=== PATIENT | female | born 1995 | race American Indian/Alaskan Native ===

== ENCOUNTER 2017-12-27 20:16 | Emergency (ER) | payer SELFPAY ==
[2017-12-27 20:16] VITALS: BMI 31.1
[2017-12-27 20:25] VITALS: BP 105/65; PULSE 70; RESP 14; TEMP 98.5; O2SAT 99
--- NOTE | 2017-12-27 21:03 | C.PDOC ---
History Of Present Illness 22 yo female c/o vaginal irritation for 2 days. Pt notes that she took a bath with the "bath bomb" and when she got out she felt the irritation "inside". Denies vaginal discharge, vaginal bleeding, rash, itching, abdominal pain, back pain or fever. Denies any swelling, difficulty breathing or swallowing. Notes she has had a h/o yeast infection and "feels the same without the itching." Time Seen by Provider: 12/27/17 20:28 Chief Complaint (Nursing): Abnormal Skin Integrity History Per: Patient History/Exam Limitations: no limitations Onset/Duration Of Symptoms: Days Current Symptoms Are (Timing): Still Present Past Medical History Vital Signs: Last Vital Signs Temp 98.5 F 12/27/17 20:22 Pulse 70 12/27/17 20:22 Resp 14 12/27/17 20:22 BP 105/65 12/27/17 20:22 Pulse Ox 99 12/27/17 21:06 - [facility] [employer] Procedures DELIVERY OF PRODUCTS OF CONCEPTION, EXTERNAL APPROACH (07/27/16) DIVISION OF FEMALE PERINEUM, EXTERNAL APPROACH (07/27/16) Family History: States: Unknown Family Hx - Social History Hx Alcohol Use: No Hx Substance Use: No - Immunization History Hx Tetanus Toxoid Vaccination: Yes Hx Influenza Vaccination: Yes Hx Pneumococcal Vaccination: Yes Review Of Systems Except As Marked, All Systems Reviewed And Found Negative. Physical Exam - Physical Exam Appears: Well, Non-toxic, No Acute Distress Skin: Normal Color, Warm, Dry Head: Atraumatic, Normacephalic Eye(s): bilateral: Normal Inspection, EOMI Nose: Normal Neck: Normal, Normal ROM, Supple Chest: Symmetrical Cardiovascular: Rhythm Regular Respiratory: Normal Breath Sounds Gastrointestinal/Abdominal: Normal Exam, Soft, No Tenderness Back: Normal Inspection Pelvic: Normal External Exam, Vaginal Discharge ((+) think white discharge), No Cervical Motion Tenderness Extremity: Normal ROM Neurological/Psych: Oriented x3, Normal Speech ED Course And Treatment O2 Sat by Pulse Oximetry: 99 Progress Note: Pt requests testing for STDs but does not want to be treated at this time. Instructed to follow up with [facility] in 1-2 days or return to ER if symptoms persist or worsen. Disposition - Disposition Disposition: HOME/ ROUTINE Disposition Time: 21:03 Condition: STABLE Additional Instructions: Follow up with your primary medical doctor or clinic in 2-5 days for further evaluation. Take medications as prescribed. Return to the emergency department at any time if symptoms persist or worsen. Prescriptions: Metronidazole [Flagyl] 500 mg PO BID #14 tab Miconazole/Cleanser 17 On Wipe [Monistat 3 Combo Pack] 1 each VG HS #1 kit Instructions: Bacterial Vaginosis (DC) Forms: [facility] (Lithuanian) - Clinical Impression Clinical Impression: Bacterial vaginosis
[2017-12-27 21:27] LABS: SQUAMOUS EPITHIAL 15 /hpf (0-5); URINE BILIRUBIN NEGATIVE (NEGATIVE); URINE BLOOD NEGATIVE (NEGATIVE); URINE CLARITY Hazy (Clear); URINE COLOR Yellow (YELLOW); URINE GLUCOSE (UA) 1+ mg/dL (Normal); URINE LEUKOCYTE ESTERASE 2+ Leu/uL (Negative); URINE PROTEIN NEGATIVE (NEGATIVE); URINE UROBILINOGEN NORMAL mg/dL (0.2-1.0)
[2017-12-27 21:31] LABS: HCG,QUALITATIVE URINE NEGATIVE (NEGATIVE)
== END 2017-12-27 21:45 | disposition home or self-care (01) ==
LOC: C.ER 20:16
DX: N76.0 Acute vaginitis (principal); B96.89 Other specified bacterial agents as the cause of diseases classified elsewhere

== ENCOUNTER 2018-09-06 17:01 | Emergency (ER) | payer MEDICAID ==
[2018-09-06 17:01] VITALS: BMI 31.1
--- NOTE | 2018-09-06 17:41 | C.PDOC ---
History Of Present Illness 23 year old female G_P_ with PMHx of ovarian cysts presents for evaluation of LLQ pain described as sharp and rated 10/10 associated with dark urine. The pt reports she was diagnosed with left ovarian cyst. In the ED the pt has US results showing complex cystic mass on the left ovarian. Pt notes having two prior cysts on each of her ovaries. States menstrual cycle is pending. Denies vaginal bleeding, dysuria, fever, chills, nausea, vomiting, diarrhea, constipation, or any other associated symptoms. Time Seen by Provider: 09/06/18 17:21 Chief Complaint (Nursing): Female Genitourinary History Per: Patient History/Exam Limitations: no limitations Onset/Duration Of Symptoms: Days, Waxing/Waning Pain Scale Rating Of: 10 Location Of Pain/Discomfort: LLQ Radiation Of Pain To:: None Quality Of Discomfort: Sharp Associated Symptoms: denies: Fever, Chills Recent travel outside of the [place]: No Past Medical History Reviewed: Historical Data, Nursing Documentation, Vital Signs Vital Signs: Last Vital Signs Temp 97.7 F 09/06/18 17:07 Pulse 79 09/06/18 17:07 Resp 20 09/06/18 17:07 BP 109/72 09/06/18 17:07 Pulse Ox 98 09/06/18 17:07 - [facility] Procedures DELIVERY OF PRODUCTS OF CONCEPTION, EXTERNAL APPROACH (07/27/16) DIVISION OF FEMALE PERINEUM, EXTERNAL APPROACH (07/27/16) Family History: States: Unknown Family Hx - Social History Hx Alcohol Use: Yes Hx Substance Use: Yes - Immunization History Hx Tetanus Toxoid Vaccination: (unk) Hx Influenza Vaccination: No Hx Pneumococcal Vaccination: (unk) Review Of Systems Except As Marked, All Systems Reviewed And Found Negative. Constitutional: Negative for: Fever, Chills Gastrointestinal: Positive for: Abdominal Pain (LLQ). Negative for: Nausea, Vomiting, Diarrhea, Constipation Genitourinary: Positive for: Other ((+) dark urine. ). Negative for: Dysuria, Vaginal Discharge Physical Exam - Physical Exam Appears: Non-toxic, No Acute Distress Skin: Warm, Dry Head: Atraumatic, Normacephalic Eye(s): bilateral: Normal Inspection ED Course And Treatment O2 Sat by Pulse Oximetry: 98 (RA) Pulse Ox Interpretation: Normal Medical Decision Making Medical Decision Making: Initial plan: -Motrin -Tylenol -HCG Urine -Urinalysis Progress/Update: Pt stable for discharge home. Advised to follow-up with [facility] within 2-3 days. Patient feeling much better after Motrin. Will d/c Disposition - Disposition Disposition: HOME/ ROUTINE Disposition Time: 18:10 Condition: STABLE Additional Instructions: You can take Tylenol 975mg and Ibuprofen 600mg for pain 3 times a day. Follow up with your [facility] doctor. Prescriptions: Ibuprofen [Motrin] 600 mg PO TID #15 tab Instructions: Ovarian Cyst (DC) Forms: [facility] (Chinese), General Discharge Instructions - POA Present On Arrival: None - Clinical Impression Clinical Impression: Ovarian cyst - Scribe Statement The provider has reviewed the documentation as recorded by the Scribe (Rosie Man) Provider Attestation: All medical record entries made by the Scribe were at my direction and per sonally dictated by me. I have reviewed the chart and agree that the record accurately reflects my personal performance of the history, physical exam, medical decision making, and the department course for this patient. I have also personally directed, reviewed, and agree with the discharge instructions and disposition.
[2018-09-06 18:01] LABS: SQUAMOUS EPITHIAL 8 /hpf (0-5); URINE BILIRUBIN 1+ (NEGATIVE); URINE BLOOD NEGATIVE (NEGATIVE); URINE CLARITY Hazy (Clear); URINE COLOR Amber (YELLOW); URINE GLUCOSE (UA) NORMAL (Normal); URINE LEUKOCYTE ESTERASE 1+ Leu/uL (Negative); URINE PROTEIN 1+ mg/dL (NEGATIVE)
[2018-09-06 18:24] VITALS: BP 105/78; PULSE 93; RESP 18; TEMP 98; O2SAT 100
== END 2018-09-06 18:24 | disposition home or self-care (01) ==
LOC: C.ER 17:01
DX: N83.202 Unspecified ovarian cyst, left side (principal)